=== PATIENT | female | born 1970 | race African-American/Black ===

== ENCOUNTER 2020-11-24 11:11 | Emergency (ER) | payer MEDICAID, OTHER ==
[~2020-11-24] VITALS: Ht 193 cm; Wt 125.0 kg
[2020-11-24] MEDS ORDERED: CARB100 PO (11:27)
[2020-11-24] MEDS ORDERED: INSU100V12 SQ (11:27)
[2020-11-24] MEDS ORDERED: INSNOV SQ (11:27)
[2020-11-24] MEDS ORDERED: DIPH25TA20 PO (11:27)
[2020-11-24] MEDS ORDERED: METF-960 PO (11:27)
[2020-11-24] MEDS ORDERED: GABA-1201 PO (11:27)
[2020-11-24] MEDS ORDERED: LISI-893 PO (11:27)
[2020-11-24 14:33] VITALS: BP 128/74
== END 2020-11-24 14:34 | disposition home or self-care (01) ==
LOC: EMS 11:18
DX: M54.12 Radiculopathy, cervical region (principal); M50.923 Unspecified cervical disc disorder at C6-C7 level; F31.9 Bipolar disorder, unspecified; F17.210 Nicotine dependence, cigarettes, uncomplicated; F12.90 Cannabis use, unspecified, uncomplicated; F20.9 Schizophrenia, unspecified; Z79.4 Long term (current) use of insulin; Z79.899 Other long term (current) drug therapy
CPT/HCPCS: 72125; 82962; 99284

== ENCOUNTER 2022-10-11 10:32 | Emergency (ER) | payer OTHER, SELFPAY ==
[~2022-10-11] VITALS: Ht 193 cm; Wt 124.5 kg
[~2022-10-11 10:32] MED LIST: CARB100 PO; DIPH25TA20 PO; GABA-1201 PO; INSNOV SQ; INSU100V12 SQ; LISI-893 PO; METF-1211 PO
[2022-10-11 10:58] VITALS: BP 154/84
[2022-10-11] MEDS ORDERED: LISI20TA24 PO (11:05)
[2022-10-11] MEDS ORDERED: INSU100I3 SQ (11:05)
== END 2022-10-11 12:28 | disposition left against medical advice (07) ==
LOC: EMS 10:32
DX: R21 Rash and other nonspecific skin eruption (principal); Z53.21 Procedure and treatment not carried out due to patient leaving prior to being seen by health care provider
CPT/HCPCS: 99281; Z7502